=== PATIENT | female | born 1970 | race Caucasian/White ===

== ENCOUNTER 2021-06-18 13:39 | Emergency (ER) | payer OTHER, SELFPAY ==
[2021-06-18 13:47] VITALS: BP 128/87; PULSE 88; RESP 16; TEMP 36.6; O2SAT 98
--- NOTE | 2021-06-18 14:27 | ED.SKABFB ---
HPI - Skin/Abscess/Foreign Bdy General Chief complaint: Skin/Abscess/Foreign Body Stated complaint: rash Time Seen by Provider: 06/18/21 14:28 Source: patient Mode of arrival: ambulatory Limitations: no limitations History of Present Illness HPI narrative: Rekha Jules is a 50 yo female with a PMH of elevated cholesterol [facility] with discoloration of her skin for 2 years there is discoloration on her arms her chest her back with an overlay of open sores on her arms; she has tried a variety of [id number] cortisone treatments with no improvement Related Data Home Medications Medication Instructions Recorded Confirmed citalopram 20 mg PO DAILY 06/18/21 06/18/21 trazodone 100 mg PO DAILY 06/18/21 06/18/21 Allergies Allergy/AdvReac Type Severity Reaction Status Date / Time No Known Allergies Allergy Verified 06/18/21 13:53 Review of Systems Review of Systems: CONSTITUTIONAL: Denies fever, chills, sweats. EYES: Denies visual changes, redness, discharge. ENT: Denies rhinorrhea, congestion, sore throat, otalgia. CARDIOVASCULAR: Denies chest pain, palpitations, edema. RESPIRATORY: Denies dyspnea, wheezing, cough GASTROINTESTINAL: Denies abdominal pain, nausea, vomiting, diarrhea. GENITOURINARY: Denies dysuria, hematuria, abnormal discharge SKIN: Denies rash or itching.broken skin on both arma, discoloration of arms NEUROLOGIC: Denies numbness, or focal weakness. PSYCHIATRIC: Denies anxiety or depression. PMFSH Past Medical History Medical History High cholesterol Social History Social History (Updated 06/18/21 @ 14:43 by Salome Tomas CNP) Smoking packs per day: 1 Smoking cigarettes per day: 20.0 Smoking status: Current every day smoker Alcohol intake: current Comments At time of signature, I agree with nursing past medical, surgical, social and family history. There is no relevant family history pertinent to the presenting complaint. Exam Narrative: GENERAL: This is a well-nourished, well-developed patient, in mild distress. HEAD: normocephalic, atraumatic. EYES: PERRL. Sclera clear/white. Vision is grossly intact. EARS: External ears normal, . Hearing grossly intact. NOSE: External nose normal without nasal discharge, nares without redness, no rhinorrhea. THROAT: Mucous membranes moist, p NECK: Neck supple, non-tender CARDIOVASCULAR: Regular rate and rhythm without murmurs, gallops, or rubs. RESPIRATORY: Clear to auscultation. Breath sounds equal bilaterally. No wheezes, rales, or rhonchi. GASTROINTESTINAL: Abdomen soft, non-tender, SKIN: warm, intact with white discoloration of skin on arms back chest with open areas of skin NEURO: awake, alert, and oriented to person, place and time. There were no obvious focal neurologic abnormalities. Steady gait EXTREMITIES: Normal range of motion. BACK: Nontender without deformity Course Course Emergency Course: Skin is discolored and needs to be seen by a scheduling agent started on ice statin triamcinolone cream until can make contact to be seen by scheduling agent Vital Signs Vital signs: Vital Signs Temperature 97.9 F 06/18/21 13:47 Pulse Rate 88 06/18/21 13:47 Respiratory Rate 16 06/18/21 13:47 Blood Pressure 128/87 06/18/21 13:47 Pulse Oximetry 98 06/18/21 13:47 Temperature 97.9 F 06/18/21 13:47 Pulse Rate 88 06/18/21 13:47 Respiratory Rate 16 06/18/21 13:47 Blood Pressure 128/87 06/18/21 13:47 Pulse Oximetry 98 06/18/21 13:47 MDM - Skin/Abscess/Foreign Bdy Differential Diagnosis Differential diagnosis: Likely abscess of skin or subcutaneous tissue, cellulitis, eczema, impetigo, contact dermatitis and other Critical Care Time Critical Care Time Critical Care Time: No Discharge Plan Discharge Clinical Impression: Fungal infection of skin Patient Disposition: Home, Self-Care Condition: Stable Instructions: Antifun
== END 2021-06-18 14:55 | disposition home or self-care (01) ==
PROVIDERS: Emergency Provider Nurse Practitioner; PCP Family Medicine
DX: B36.9 Superficial mycosis, unspecified (principal); F17.210 Nicotine dependence, cigarettes, uncomplicated
CPT/HCPCS: 99213; G0463